=== PATIENT | male | born 1950 | race American Indian/Alaskan Native ===

== ENCOUNTER 2017-01-15 18:03 | Emergency (ER) | payer OTHER ==
[2017-01-15 18:17] VITALS: TEMP 98.4
[2017-01-15 18:20] VITALS: BMI 22.9
--- NOTE | 2017-01-15 18:34 | ED PDOC ---
Arrival/HPI - General Time Seen by Provider: 01/15/17 18:21 Historian: Patient - History of Present Illness Narrative History of Present Illness (Text): 01/15/17 18:34 66 year old male with a past medical history that includes enlarged prostate presents to the emergency department with urine retention for the past two days. Patient states he was [place] [facility] [place] after being seen for aspiration pneumonia. Patient reports since being discharged he has only been urinating in "drops." Patient denies chest pain or shortness of breath. Time/Duration: < week Symptom Onset: Sudden Symptom Course: Unchanged Modifying Factors (Text): None Associated Symptoms (Text): None Past Medical History - Provider Review Nursing Documentation Reviewed: Yes Family/Social History - Physician Review Nursing Documentation Reviewed: Yes Family/Social History: Unknown Family HX Allergies/Home Meds Allergies/Adverse Reactions: Allergies No Known Allergies Allergy (Unverified 01/15/17 18:28) Home Medications: Home Meds Medication Instructions Recorded Confirmed Unobtainable 01/15/17 01/15/17 Review of Systems - Review of Systems Eyes: absent: Vision Changes ENT: absent: Hearing Changes Respiratory: absent: SOB Cardiovascular: absent: Chest Pain Gastrointestinal: absent: Vomiting Genitourinary Male: Urinary Output Changes (Decreased) Musculoskeletal: absent: Neck Pain Skin: absent: Rash Neurological: absent: Headache, Dizziness, Focal Weakness Endocrine: absent: Diaphoresis Hemo/Lymphatic: absent: Easy Bleeding Psychiatric: absent: Depression Physical Exam - Physical Exam Narrative Physical Exam (Text): Head: Atraumatic. Normocephalic. Eyes: PERRL. EOMI. Conjunctivae are not pale. ENT: Mucous membranes are moist and intact. Oropharynx is clear and symmetric. Neck: Supple. Full ROM. No JVD. No lymphadenopathy. Cardiovascular: Regular rate. Regular rhythm. No murmurs, rubs, or gallops. Distal pulses are 2+ and symmetric. Pulmonary/Chest: No evidence of respiratory distress. Clear to auscultation bilaterally. No wheezing, rales or rhonchi. Abdominal: Suprapubic distension with tenderness. Genitourinary: no penile lesions or lacerations, no testicular pain or swelling Back: No CVA tenderness. Extremities: No edema. No cyanosis. No clubbing. Full range of motion in all extremities. No calf tenderness. Skin: Skin is warm and dry. No petechiae. No purpura. Neurological: Alert, awake, and oriented. Motor and sensory intact. Psychiatric: Good eye contact. Normal interaction, affect, and behavior. 01/15/17 21:16 Vital Signs Reviewed: Yes Vital Signs Temp Pulse Resp BP Pulse Ox 01/15/17 21:26 95 H 16 138/86 97 01/15/17 18:17 98.4 F 91 H 18 148/102 H 98 Temperature: Afebrile Blood Pressure: Normal Pulse: Regular Respiratory Rate: Normal Appearance: Positive for: Uncomfortable Pain Distress: Severe Mental Status: Positive for: Alert and Oriented X 3 Medical Decision Making ED Course and Treatment: Patient presents with difficulty urinating for three days, today was unable to urinate at all and presents with lower abdominal discomfort. He reports remote history of enlarged prostate. No fever, denies flank or back pain. Reports recent admission for pneumonia [place] [facility] but denies any cough or shortness of breath or respiratory symptoms. Phillips catheter placed with 900ml of clear urine obtained and complete resolution of discomfort. He was observed in ED and found to remain asymptomatic. Labs unremarkable. Not orthostatic. Will discharge with leg bag catheter, advised urology follow-up to reassess catheter as well as assess for any prostate pathology. I discussed case with on-call urologist Dr. Courtney Gibbs, who states he will follow-up with patient, family and patient given urologist follow-up. - Lab Interpretations Lab Results: 01/15/17 19:15 01/15/17 19:15 Lab Results 01/15/17 19:15: WBC 9.4, RBC 3.45 L, Hgb 10.3 L, Hct 31.3 L, MCV 90.7, MCH 29.9 , MCHC 32.9, RDW 14.1, Plt Count 430, MPV 8.5, Gran % 81.9 H, Lymph % (Auto) 8.2 L, [place] % (Auto) 8.4 H, Eos % (Auto) 1.0 L, Baso % (Auto) 0.5, Gran # 7.74 H , Lymph # 0.8 L, [place] # 0.8 H, Eos # 0.1, Baso # 0.05, Sodium 141, Potassium 4.1 , Chloride 102, Carbon Dioxide 29, Anion Gap 14, BUN 14, Creatinine 0.7, Est GFR ( Amer) > 60, Est GFR (Non-Af Amer) > 60, Random Glucose 100, Calcium 8.7, Total Bilirubin 0.5, AST 44, ALT 21, Alkaline Phosphatase 75, Total Protein 7.8, Albumin 3.4, Globulin 4.5, Albumin/Globulin Ratio 0.8 L, Urine Color Yellow, Urine Appearance Clear, Urine pH 6.0, Ur Specific [place] 1.010, Urine Protein Negative, Urine Glucose (UA) Negative, Urine Ketones Negative, Urine Blood Trace-intact H, Urine Nitrate Negative, Urine Bilirubin Negative, Urine Urobilinogen 0.2, Ur Leukocyte Esterase Negative, Urine RBC 1 - 3, Urine WBC 0 - 2, Ur Epithelial Cells None, Urine Bacteria Few - Medication Orders Current Medication Orders: Discontinued Medications Sodium Chloride (Sodium Chloride 0.9%) 1,000 mls @ 1,000 mls/hr IV .Q1H STA Stop: 01/15/17 19:44 Last Admin: 01/15/17 19:33 Dose: 1,000 MLS/HR eMAR Start Stop Document 01/15/17 19:33 HI (Rec: 01/15/17 19:39 HI [id number]) Intravenous Solution Start Date 01/15/17 Start Time 19:39 - Scribe Statement The provider has reviewed the documentation as recorded by the Jaun Morales All medical record entries made by the Jaun were at my direction and personally dictated by me. I have reviewed the chart and agree that the record accurately reflects my personal performance of the history, physical exam, medical decision making, and the department course for this patient. I have also personally directed, reviewed, and agree with the discharge instructions and disposition. Disposition/Present on Arrival - Present on Arrival Any Indicators Present on Arrival: Yes Urinary Catheter: Yes - Disposition Have Diagnosis and Disposition been Completed?: Yes Diagnosis: Urinary retention Disposition: HOME/ ROUTINE Disposition Time: 20:00 Patient Plan: Discharge Condition: GOOD Discharge Instructions (ExitCare): Urinary Retention in Men (ED), Urinary Leg Bag (GEN) Additional Instructions: Follow-up with a urologist as directed in 2-3 days. For any fever, any abdominal pain, any bloody urine, any chest pain or shortness of breath, any numbness or weakness, any persistent or worsening of symptoms, get rechecked. Referrals: Courtney Gibbs MD [Staff Provider] - Follow up with primary
[2017-01-15] MEDS ORDERED: Sodium Chloride 0.9% 1,000 ML IV STA (18:45)
[2017-01-15 19:30] LABS: ADD MANUAL DIFF? NO
[2017-01-15 19:33] LABS: BASO # 0.05 K/mm3 (0.0-2.0); BASO % 0.5 % (0.0-3.0); EOS # 0.1 (0.0-0.7); GRAN # 7.74 (1.4-6.5); GRAN % 81.9 % (50.0-68.0); HEMATOCRIT 31.3 % (42.0-52.0); LYMPH # 0.8 (1.2-3.4); LYMPH % 8.2 % (22.0-35.0); MEAN CELL VOLUME 90.7 fL (80.0-105.0); MEAN CORPUSCULAR HEMOGLOBIN 29.9 pg (25.0-35.0); MEAN CORPUSCULAR HGB CONC 32.9 g/dl (31.0-37.0); MEAN PLATELET VOLUME 8.5 fl (7.0-11.0); MONO # 0.8 (0.1-0.6); MONO % 8.4 % (1.0-6.0); PLATELET COUNT 430 10^3/uL (120.0-450.0); RED CELL DISTRIBUTION WIDTH 14.1 % (11.5-14.5); WHITE BLOOD COUNT 9.4 10^3/ul (4.5-11.0)
[2017-01-15 19:34] LABS: URINE BILIRUBIN NEGATIVE (NEGATIVE); URINE BLOOD TRACE-INTACT (NEGATIVE); URINE GLUCOSE (UA) NEGATIVE (NEGATIVE); URINE KETONE NEGATIVE (NEGATIVE); URINE LEUKOCYTE ESTERASE NEGATIVE Leu/uL (NEGATIVE); URINE PROTEIN NEGATIVE mg/dL (<30 mg/dL); URINE UROBILINOGEN 0.2 E.U./dL (<1 E.U./dL)
[2017-01-15 19:35] LABS: URINE APPEARANCE CLEAR (CLEAR); URINE COLOR YELLOW (YELLOW)
[2017-01-15 19:40] LABS: URINE WBC 0 - 2 /hpf (0-6)
[2017-01-15 19:41] LABS: URINE BACTERIA FEW (NEG)
[2017-01-15 19:47] LABS: BLOOD UREA NITROGEN 14 mg/dL (7-21); GFR AFRICAN-AMERICAN > 60; GLUCOSE,RANDOM 100 mg/dL (70-110)
[2017-01-15 19:48] LABS: ALB/GLOB RATIO 0.8 (1.1-1.8); ALKALINE PHOSPHATASE 75 U/L (38-133); ALT/SGPT 21 U/L (7-56); AST/SGOT 44 U/L (15-59); BILIRUBIN,TOTAL 0.5 mg/dL (0.2-1.3); CALCIUM 8.7 mg/dL (8.4-10.5); CARBON DIOXIDE 29 mmol/L (21-33); CHLORIDE 102 mmol/L (98-107); POTASSIUM 4.1 mmol/L (3.6-5.0); SODIUM 141 mmol/L (132-148); TOTAL PROTEIN 7.8 g/dL (5.8-8.3)
[2017-01-15 21:27] VITALS: BP 138/86; PULSE 95; RESP 16; O2SAT 97
== END 2017-01-15 21:47 | disposition home or self-care (01) ==
LOC: EDBD → ED 18:03
DX: R33.9 Retention of urine, unspecified (principal)
CPT/HCPCS: 80053; 81001; 85025; 99285; J7040

== ENCOUNTER 2017-01-20 21:37 | Emergency (ER) | payer OTHER ==
[2017-01-20 21:38] VITALS: BMI 22.9
--- NOTE | 2017-01-20 23:24 | ED PDOC ---
Arrival/HPI - General Chief Complaint: Male Genitourinary Time Seen by Provider: 01/20/17 22:27 Historian: Patient - History of Present Illness Narrative History of Present Illness (Text): 01/20/17 23:21 Pt is a 66yo male with history of BPH present with complaint of urinary retention. States the last time he was able to urinate was this morning. He was seen here on Wednesday for same complaint and discharge home with a leg bag. States the Zamorano was taken off on Wednesday. He was fine yesterday and then started having retention today, again. Notes abdominal pain. Denies fever, chills, hematuria, any other complaint. Past Medical History - Provider Review Nursing Documentation Reviewed: Yes - Infectious Disease Hx of Infectious Diseases: None - Cardiac Hx Hypertension: Yes - Psychiatric Hx Substance Use: No - Anesthesia Hx Anesthesia: No Family/Social History - Physician Review Nursing Documentation Reviewed: Yes Family/Social History: Unknown Family HX Smoking Status: Unknown If Ever Smoked Hx Alcohol Use: No Hx Substance Use: No Allergies/Home Meds Allergies/Adverse Reactions: Allergies No Known Allergies Allergy (Unverified 01/15/17 18:28) Home Medications: Home Meds Medication Instructions Recorded Confirmed Unobtainable 01/15/17 01/15/17 Review of Systems - Physician Review All systems were reviewed & negative as marked: Yes - Review of Systems Constitutional: Normal Eyes: Normal ENT: Normal Respiratory: Normal Cardiovascular: Normal Gastrointestinal: Normal Genitourinary Male: Urinary Output Changes (Urinary retention) Musculoskeletal: Normal Skin: Normal Neurological: Normal Endocrine: Normal Hemo/Lymphatic: Normal Psychiatric: Normal Physical Exam Vital Signs Reviewed: Yes Vital Signs Temp Pulse Resp BP Pulse Ox 01/20/17 23:47 98 F 78 19 125/78 99 01/20/17 22:13 97.7 F 110 H 20 135/77 100 Temperature: Afebrile Blood Pressure: Normal Pulse: Regular Respiratory Rate: Normal Appearance: Positive for: Well-Appearing, Non-Toxic, Comfortable Pain Distress: None Mental Status: Positive for: Alert and Oriented X 3 - Systems Exam Head: Present: Atraumatic, Normocephalic Pupils: Present: PERRL Extroacular Muscles: Present: EOMI Conjunctiva: Present: Normal Mouth: Present: Moist Mucous Membranes Neck: Present: Normal Range of Motion Respiratory/Chest: Present: Clear to Auscultation, Good Air Exchange. No: Respiratory Distress, Accessory Muscle Use Cardiovascular: Present: Regular Rate and Rhythm, Normal S1, S2. No: Murmurs Abdomen: Present: Tenderness (Diffuse), Distention, Normal Bowel Sounds, Other ( Soft). No: Peritoneal Signs, Rebound, Guarding, McBurney's Point Tender, Rovsing's Sign Present Back: Present: Normal Inspection Upper Extremity: Present: Normal Inspection. No: Cyanosis, Edema Lower Extremity: Present: Normal Inspection. No: Edema Neurological: Present: GCS=15, CN II-XII Intact, Speech Normal Skin: Present: Warm, Dry, Normal Color. No: Rashes Psychiatric: Present: Alert, Oriented x 3, Normal Insight, Normal Concentration Medical Decision Making ED Course and Treatment: 01/21/17 01:27 PT presented for stated history. His symptoms resolved in ED. 500cc of urine was noted on the fole bag in ED. Case was DW Dr. Gibbs. He requested that pt call his office in the morning and follow up with him. Pt was DC home with a zamorano bag in place. Advised to f/u with Dr. gibbs. TRT ED for any new or worsening symptoms. Disposition/Present on Arrival - Present on Arrival Any Indicators Present on Arrival: No History of DVT/PE: No History of Uncontrolled Diabetes: No Urinary Catheter: Yes History of Decub. Ulcer: No History Surgical Site Infection Following: None - Disposition Have Diagnosis and Disposition been Completed?: Yes Diagnosis: Urinary retention Disposition: HOME/ ROUTINE Disposition Time: 23:25 Patient Plan: Discharge Condition: STABLE Discharge Instructions (ExitCare): Urinary Retention in Men (ED) Additional Instructions: Follow up with Dr. Gibbs tomorrow Return to ED for any new or worsening symptoms Referrals: Kelley Hart MD [Primary Care Provider] - Follow up with primary
[2017-01-20 23:47] VITALS: BP 125/78; PULSE 78; RESP 19; TEMP 98; O2SAT 99
== END 2017-01-20 23:53 | disposition home or self-care (01) ==
LOC: ED 21:37
DX: R33.9 Retention of urine, unspecified (principal)